=== PATIENT | female | born 1980 | race Caucasian/White ===

== ENCOUNTER 2019-05-23 11:09 | Observation (INO) ==
[2019-05-23 12:14] LABS: Basophils % 0.3 %; Eosinophils # 0.1 K/mcL (0.0-0.6); Eosinophils % 0.7 %; Hemoglobin 14.8 g/dL (11.5-15.4); Immature Granulocytes % 0.3 % (0-4); Lymphocytes % 17.6 %; Mean Corpuscular HGB Conc 32.2 g/dL (31.6-35.5); Mean Corpuscular Hemoglobin 30.6 pg (28.0-33.3); Mean Corpuscular Volume 95.2 fL (83.0-100.0); Mean Platelet Volume 9.1 fL (9.4-12.4); Monocytes # 0.6 K/mcL (0.0-1.3); Monocytes % 5.3 %; Neutrophils # 8.7 K/mcL (1.6-8.9); Platelet Count 398 K/mcL (140-400); Red Blood Count 4.83 M/mcL (3.82-4.97); Red Cell Distribution Width 12.7 % (11.5-14.5); Segmented Neutrophils % 75.8 %; White Blood Count 11.4 K/mcL (4.3-11.1)
== END 2019-05-23 13:00 | disposition home or self-care (01) ==
LOC: 1NENULAB
PROVIDERS: ADMIT Obstetrics & Gynecology; ATTEND Obstetrics & Gynecology

== ENCOUNTER → 2021-03-25 14:32 | Observation (INO) | END | disposition home or self-care (01) | LOC: 1NENULAB | PROVIDERS: ADMIT Advanced Practice Midwife; ATTEND Advanced Practice Midwife ==

== ENCOUNTER 2021-04-15 13:28 | Observation (INO) ==
[2021-04-15] MEDS ORDERED: Morphine Sulfate 2 MG/ML SYRINGE SQ ONE (17:43)
== END 2021-04-15 19:19 | disposition home or self-care (01) ==
LOC: 1NENULAB
PROVIDERS: ADMIT Obstetrics & Gynecology; ATTEND Obstetrics & Gynecology

== ENCOUNTER 2021-04-26 12:00 | Inpatient (IN) ==
[2021-04-26] MEDS ORDERED: EPHEDrine 50 MG/ML VIAL IVP PRN (12:07)
[2021-04-26] MEDS ORDERED: Epidural Premix (fent/bupiv) 110 ML EP SCH (12:15)
[2021-04-26] MEDS ORDERED: Famotidine 20 MG/2 ML VIAL IVP PRN (12:33)
[2021-04-26] MEDS ORDERED: Ondansetron 4 MG/2 ML VIAL IVP PRN (12:33)
[2021-04-26] MEDS ORDERED: Lidocaine 1% 20 ML MDV ID PRN (12:33)
[2021-04-26] MEDS ORDERED: Azithromycin 500 MG in 0.9 % Sodium Chloride 250 ML IVPB PRN (12:33)
[2021-04-26] MEDS ORDERED: Metoclopramide 10 MG/2 ML VIAL IVP PRN (12:33)
[2021-04-26] MEDS ORDERED: Naloxone 0.4 MG/ML INJ IVP PRN (12:33)
[2021-04-26] MEDS ORDERED: *HR* Nalbuphine 10 MG/ML AMPUL IV PRN (12:33)
[2021-04-26] MEDS ORDERED: D5% in Lactated Ringers 1,000 ML IVC SCH (12:45)
[2021-04-26] MEDS ORDERED: Oxytocin 30 UNIT/503 ML BAG IVC SCH (12:45)
[2021-04-26 13:32] LABS: Basophils # 0.1 K/mcL (0.0-0.2); Basophils % 0.4 %; Eosinophils # 0.1 K/mcL (0.0-0.6); Eosinophils % 0.4 %; Hematocrit 34.7 % (35.3-44.9); Hemoglobin 11.4 g/dL (11.5-15.4); Immature Granulocytes % 0.6 % (0-4); Lymphocytes # 2.2 K/mcL (0.6-4.6); Lymphocytes % 18.5 %; Mean Corpuscular HGB Conc 32.9 g/dL (31.6-35.5); Mean Corpuscular Hemoglobin 29.2 pg (28.0-33.3); Mean Corpuscular Volume 88.7 fL (83.0-100.0); Mean Platelet Volume 10.1 fL (9.4-12.4); Monocytes # 0.8 K/mcL (0.0-1.3); Monocytes % 7.1 %; Neutrophils # 8.5 K/mcL (1.6-8.9); Platelet Count 430 K/mcL (140-400); Red Blood Count 3.91 M/mcL (3.82-4.97); Red Cell Distribution Width 14.9 % (11.5-14.5); White Blood Count 11.6 K/mcL (4.3-11.1)
[2021-04-26] MEDS ORDERED: Ringers Solution, Lactated 1,000 ML ONE ×3 (13:37→16:58)
[2021-04-26 13:41] LABS: Amphetamine Screen,Urine Negative ng/mL (Cutoff=1000); Barbiturate Screen,Urine Negative ng/mL (Cutoff=200); Benzodiazepines Screen,Urine Negative ng/mL (Cutoff=200); Cannabinoid Screen,Urine Negative ng/mL (Cutoff = 50); Cocaine Screen,Urine Negative ng/mL (Cutoff= 300); Opiate Screen,Urine Negative ng/mL (Cutoff=300); Phencyclidine Screen,Urine Negative ng/mL (Cutoff=25)
[2021-04-26] MEDS ORDERED: EPHEDrine 50 MG/ML VIAL ONE (15:16)
[2021-04-26] MEDS ORDERED: Ondansetron 4 MG/2 ML VIAL ONE (15:16)
[2021-04-26] MEDS ORDERED: Benzocaine/Menthol 56 GM AEROSOL SPRAY TP PRN (17:09)
[2021-04-26] MEDS ORDERED: Acetaminophen 325 MG TABLET PO ONE (22:35)
[2021-04-27] MEDS ORDERED: Ondansetron ODT 4 MG TAB.RAPDIS SL PRN (02:23)
[2021-04-27] MEDS ORDERED: Lanolin 7 G OINT...G. TP PRN (02:23)
[2021-04-27] MEDS ORDERED: Benzocaine/Menthol 56 GM AEROSOL SPRAY TP PRN (02:23)
[2021-04-27] MEDS ORDERED: Oxytocin 30 UNIT/503 ML BAG IVC SCH (02:23)
[2021-04-27] MEDS: Ibuprofen 600 MG TABLET PO SCH ×4 (02:56→21:41)
[2021-04-27 03:45] LABS: Basophils # 0.1 K/mcL (0.0-0.2); Basophils % 0.2 %; Hematocrit 32.4 % (35.3-44.9); Hemoglobin 10.5 g/dL (11.5-15.4); Immature Granulocytes % 0.7 % (0-4); Lymphocytes # 1.9 K/mcL (0.6-4.6); Lymphocytes % 8.1 %; Mean Corpuscular HGB Conc 32.4 g/dL (31.6-35.5); Mean Corpuscular Volume 89.5 fL (83.0-100.0); Mean Platelet Volume 9.8 fL (9.4-12.4); Monocytes # 1.6 K/mcL (0.0-1.3); Monocytes % 7.1 %; Neutrophils # 19.4 K/mcL (1.6-8.9); Platelet Count 354 K/mcL (140-400); Red Blood Count 3.62 M/mcL (3.82-4.97); Red Cell Distribution Width 14.8 % (11.5-14.5); Segmented Neutrophils % 83.9 %; White Blood Count 23.1 K/mcL (4.3-11.1)
[2021-04-27] MEDS: Prenatal Vit/FA 1 EACH TABLET PO SCH (08:35)
[2021-04-27] MEDS: Acetaminophen 325 MG TABLET PO SCH ×3 (08:36→16:32)
[2021-04-27] MEDS ORDERED: SUMAtriptan succinate 25 MG TABLET PO ONE ×2 (11:39→11:43)
[2021-04-27] MEDS: Acetaminophen/Butalbital/CaffeineTABLET PO PRN ×2 (12:39→22:15)
[2021-04-27] MEDS ORDERED: Ringers Solution, Lactated 1,000 ML ONE (13:50)
[2021-04-27] MEDS ORDERED: Ringers Solution, Lactated 1,000 ML IVC SCH (14:00)
[2021-04-28] MEDS: Ibuprofen 600 MG TABLET PO SCH ×2 (04:50→11:01)
[2021-04-28] MEDS: Acetaminophen/Butalbital/CaffeineTABLET PO PRN ×2 (04:52→11:02)
[2021-04-28 06:51] VITALS: BP 104/52; PULSE 75; TEMP 97.8; O2SAT 98
[2021-04-28] MEDS: Prenatal Vit/FA 1 EACH TABLET PO SCH (07:44)
== END 2021-04-28 11:30 | disposition home or self-care (01) | DRG 560 ==
LOC: 1NENULAB 12:00 → 1NENUOBS 04-27 02:10
PROVIDERS: ADMIT Obstetrics & Gynecology; ATTEND Obstetrics & Gynecology